=== PATIENT | female | born 2000 | race Caucasian/White ===

== ENCOUNTER 2022-02-18 01:33 | Emergency (ER) | payer SELFPAY ==
[~2022-02-18] VITALS: Ht 160 cm; Wt 54.4 kg
[2022-02-18 01:33] VITALS: BP 110/60
--- NOTE | 2022-02-18 01:34 | NUR ---
Dr. Westfall examining patient.
--- NOTE | 2022-02-18 01:36 | NUR ---
PT GRICEL BLS. TAKEN TO BED 10
[2022-02-18] MEDS ORDERED: ONDANSETRON 4 MG ODT PO ONE (01:40)
--- NOTE | 2022-02-18 01:59 | NUR ---
21 Y/O FEMALEBIBA, C/O ETOH. PT STATES SHE WAS DRINKING WITH FRIENDS EARLIERTHIS EVENING. EMS STATED THAT PT WAS FOUND ETOH, LYING IN BED SLEEPING BY [facility]. EMS WAS THEN CALLED BY RA. PT DOES NOT OPEN HER EYES, IS DIZZY, BUT IS ABLE TO ANSWER ALL A/O QUESTIONS CORRECTLY. PT VOMITED PRIOR TO HOSPITAL ARRIVAL; SKIN IS PINK/WARM/DRY; AAOX4 WITH EVEN AND STEADY GAIT; LUNGS CLEAR BL; HR EVEN AND REGULAR; PT DENIES ANY FEVER, CP, SOB, OR COUGH AT THIS TIME; PATIENT STATES PAIN OF 0/10 AT THIS TIME; VSS; PATIENT POSITIONED FOR COMFORT; HOB ELEVATED; BEDRAILS UP X2; BED DOWN. ER MD MADE AWARE OF PT STATUS. PT DENIES HX, ALLERGIES, OR MEDS.
--- NOTE | 2022-02-18 03:26 | NUR ---
CONTACTED [facility] TO ARRANGE KRITSOFERTONI Bañuelos, TO BUSH AND [employer] PT POST D/C
[2022-02-18 03:37] VITALS: BP 110/60
--- NOTE | 2022-02-18 03:39 | NUR ---
Patient discharged with v/s stable, accompanied by [facility] dean. Written and verbal after care instructions given and explained. Patient verbalized understanding. Wheel Chair Assisted with to car. All questions addressed prior to discharge. Advised to follow up with PMD. VSS, A/OX4, AMBULATORY, UNLABORED BREATHING, AND CALM DEMEANOR.
== END 2022-02-18 03:39 | disposition home or self-care (01) ==
LOC: MED 01:33
DX: F10.129 Alcohol abuse with intoxication, unspecified (principal)
CPT/HCPCS: 99283; Q0162